=== PATIENT | female | born 1950 | race Caucasian/White ===

== ENCOUNTER 2018-03-17 07:42 | Outpatient (CLI) | payer MEDICARE ==
--- NOTE | 2018-03-17 10:45 | CT ---
CHEST CT WITHOUT CONTRAST: HISTORY: Valve disorder. The patient is scheduled for surgery. COMPARISON: None. FINDINGS: Limited evaluation of the mediastinal structures due to lack of IV contrast. There is an upper asia l fat-containing right paratracheal lymph node, measuring 1 x 1.5 cm. Heart size is within normal li mits. There is no pericardial fusion. There is a calcification of the aortic valve. The ascending thoracic aorta, aortic arch, and descending thoracic aorta have an overall normal caliber. There is atherosclerosis. No evidence of significant coronary artery calcification. The visualized upper solid organs are grossly unremarkable. There is a moderate hiatal hernia. Trachea and central bronchi are patent. There is scar/atelectasis in the right upper lobe. The left lung demonstrates no significant masses or consolidation. There are additional areas of scarring in the lingula and middle lobe. No significant masses or consolidation in the lower lobes. Areas of s car and atelectasis are noted. No pleural effusion or pneumothorax. No lytic or blastic lesions in the osseous structures. IMPRESSION: 1. Moderate hiatal hernia. 2. Calcification of the aortic valve. No evidence of aneurysmal dilatation of the aorta. Patchy ar eas of atherosclerotic disease are noted. POS: [facility]
== END 2018-03-17 07:43 | disposition home or self-care (01) ==
LOC: BICCT 07:42
PROVIDERS: ATTEND Thoracic Surgery (Cardiothoracic Vascular Surgery)
DX: I35.9 Nonrheumatic aortic valve disorder, unspecified (principal); K44.9 Diaphragmatic hernia without obstruction or gangrene; I70.0 Atherosclerosis of aorta
CPT/HCPCS: 71250

== ENCOUNTER 2018-03-24 06:04 | Inpatient (IN) | payer MEDICARE ==
[2018-03-24] MEDS ORDERED: CEFAZOLIN/Water 2 GM/20 ML SYRINGE ONE (06:25)
[2018-03-24 06:55] LABS: #Eosinphils 0.2 thou/uL (0.0-0.7); #Lymphocytes 2.1 thou/uL (1.20-3.40); #Monocytes 0.4 thou/uL (0.11-0.59); #Neutrophils 2.8 thou/uL (1.40-6.50); %Basophils 0.8 % (0.0-1.0); %Eosinophils 3.6 % (0.0-10.0); %Lymphocytes 38.4 % (21.0-51.0); %Monocytes 6.9 % (0.0-10.0); %Neutrophils 50.3 % (42.0-75.0); Hemoglobin 12.9 g/dL (12.0-16.0); Mean Corpuscular Hemoglobin 28.7 pg (27.0-31.0); Mean Corpuscular Volume 86.9 fL (78.0-98.0); Mean Platelet Volume 7.3 fL (7.4-10.4); Platelet Count 208 thou/uL (130-400); RBC Distribution Width 12.7 % (11.5-14.5); Red Blood Cell (RBC) Count 4.51 mill/uL (4.20-5.40); White Blood Cell (WBC) Count 5.6 thou/uL (4.8-10.8)
[2018-03-24] MEDS ORDERED: Albumin 5% 500 ML ONE (06:57)
[2018-03-24] MEDS ORDERED: Midazolam HCl 5 mg/5 ml Vial ONE (07:00)
[2018-03-24] MEDS ORDERED: Fentanyl 250 MCG/5 ML VIAL ONE (07:00)
[2018-03-24] MEDS ORDERED: Heparin 10,000 UNITS/1 ML VIAL 30,000 UNITS in Sodium Chloride 0.9% 1,000 ML FS SCH (07:00)
[2018-03-24 07:11] LABS: INR-International Normal Ratio 1.1; PTT 28.4 SEC (22.9-36.1); Prothrombin Time 14.1 SEC (12.0-14.7)
[2018-03-24 07:12] LABS: Anion Gap 11 mmol/L (10-20); BUN (Urea Nitrogen) 15 mg/dL (9.8-20.1); Calc. Creatinine Clearance 73 mL/min (70-130); Calcium 9.7 mg/dL (7.8-10.44); Carbon Dioxide 27 mmol/L (23-31); Chloride 106 mmol/L (98-107); Estimated GFR-MDRD 64; Glucose 117 mg/dL (80-115); Potassium 3.9 mmol/L (3.5-5.1); Sodium 140 mmol/L (136-145)
[2018-03-24] MEDS ORDERED: Midazolam HCl 2 mg/2 ml Vial ONE (07:18)
[2018-03-24] MEDS ORDERED: Insulin Regular 300 UNITS/3 ML VIAL ONE (09:15)
[2018-03-24] MEDS ORDERED: Prevnar 13-Val Conj/PF 0.5 ML SYRINGE IM ONE (10:15)
[2018-03-24] MEDS ORDERED: Hetastarch 6% 500 ML 500 ML IVPB PRN (11:05)
[2018-03-24] MEDS ORDERED: Phenylephrine 10 MG/NS 250 ML 250 ML IVPB PRN (11:05)
[2018-03-24] MEDS ORDERED: Acetaminophen 325 MG TAB PO PRN (11:05)
[2018-03-24] MEDS ORDERED: D5 1/2 NS w/20 mEq KCL 1,000 ML IV SCH (11:05)
[2018-03-24] MEDS ORDERED: Promethazine HCl 25 MG/ML VIAL IM PRN (11:05)
[2018-03-24] MEDS ORDERED: Mag-Al 1200 mg/1200 mg/30 ML UDCUP PO PRN (11:05)
[2018-03-24] MEDS ORDERED: Fentanyl 100 MCG/2 ML VIAL SLOW IVP PRN ×2 (11:05)
[2018-03-24] MEDS ORDERED: HYDROcodone/Acetaminophen 5/325 mg Tablet PO PRN (11:05)
[2018-03-24] MEDS ORDERED: Bisacodyl 10 MG SUPP PR PRN (11:05)
[2018-03-24] MEDS ORDERED: hydrALAZINE 20 MG/ML VIAL SLOW IVP PRN (11:05)
[2018-03-24] MEDS ORDERED: Bisacodyl 5 MG TAB PO PRN (11:05)
[2018-03-24] MEDS ORDERED: Norepinephrine 8 MG/0.9% NS 250 ML IVPB PRN (11:05)
[2018-03-24] MEDS ORDERED: Nitroglycerin 50 MG/250 ML BOT 250 ML IVPB PRN (11:05)
[2018-03-24] MEDS ORDERED: Potassium Chloride 20 MEQ/100 ML PREMIX BAG IVPB PRN (11:05)
[2018-03-24] MEDS ORDERED: Guaifenesin DM 100-10/5 ML UDCUP PO PRN (11:05)
[2018-03-24] MEDS ORDERED: Potassium Chloride 60 MEQ/30 ML VIAL ONE (11:09)
[2018-03-24] MEDS ORDERED: PHENYLEPHRINE-NS 100 MCG/ML 10 ML SYRINGE ONE (11:09)
[2018-03-24] MEDS ORDERED: Magnesium 5 GM/10 ML VIAL ONE (11:09)
[2018-03-24] MEDS ORDERED: Thrombin 5000 UNITS/5 ML VIAL ONE (11:09)
[2018-03-24] MEDS ORDERED: Heparin 30,000 units/30 ml VIAL ONE (11:09)
[2018-03-24] MEDS ORDERED: Calcium Chloride 1 GM/10 ML Abboject SYRINGE ONE (11:09)
[2018-03-24] MEDS ORDERED: Lidocaine 2% PF 100 mg/5 ml Syringe ONE (11:09)
[2018-03-24] MEDS ORDERED: Aminocaproic Acid 5 GM/20 ML VIAL ONE (11:09)
[2018-03-24] MEDS ORDERED: Mannitol 12.5 GM/50 ML ONE (11:09)
[2018-03-24] MEDS ORDERED: Sodium Bicarb 50 MEQ/50 ML VIAL ONE (11:09)
[2018-03-24] MEDS ORDERED: Protamine Sulfate 250 MG/25 ML VIAL ONE (11:09)
[2018-03-24] MEDS ORDERED: Vecuronium 10 MG VIAL ONE (11:09)
[2018-03-24] MEDS ORDERED: PROPOFOL 200 MG/20 ML VIAL ONE (11:09)
--- NOTE | 2018-03-24 11:12 | OP ---
DATE OF OPERATION: 03/24/2018 PREOPERATIVE DIAGNOSIS: Aortic stenosis. POSTOPERATIVE DIAGNOSIS: Aortic stenosis. PROCEDURE: Aortic valve replacement with #21 Inspiris bioprosthetic valve. SURGEON: Dr. Silvestre Matute and Dr. Nick Mims. ANESTHESIA: General endotracheal, Dr. Doc Bateman. PUMP TIME: 78 minutes. CROSS-CLAMP TIME: 58 minutes. LOW CORE TEMP: 32-degree Celsius. CAP CUTTER: Jackie Contreras. DRAINS: 24-Irish chest tubes x2. DRIPS: None. TRANSFUSIONS: None. PROCEDURE IN DETAIL: After operative consent was obtained, the patient was brought to the operating room and placed in the supine position on the operating room table. Appropriate anesthetic monitor w as placed and general endotracheal anesthesia was induced. Chest, abdomen, and legs were prepped and draped in usual sterile fashion. Median sternotomy was performed. The patient was systemically hep arinized. Pericardium was incised with electrocautery. Pericardial stay sutures were placed. Aorti c and atrial cannulation was performed. The aorta was very thin and fragile. After adequate heparin ization, retrograde prime was performed. The patient was placed on cardiopulmonary bypass. Aortic c ross-clamp was applied and antegrade sanguinous cardioplegic arrest obtained. One liter of antegrade cold cardioplegia was given. Topical cold solution was used. Left ventricular sump drain was place d to the right superior pulmonary vein. CO2 was infused in the pericardial well throughout the open portion of the procedure. Transverse aortotomy was performed. This was hockey stick down towards th e noncoronary jake. Valve was inspected. It was a three-leaflet valve that the left and right comm issures were fused making in a functional bileaflet valve. Leaflets were very calcified and immobile . Leaflets were debrided and the annulus decalcified. Pledgeted 2-0 Ethibond sutures were placed in the annulus. Valve measured as a 21. A 21 Inspiris bioprosthetic valve was brought into the operat irving field. Sutures were placed through the sewing ring. The valve was seated and secured with core knots. The valve seated nicely. The aortotomy was closed with a pledgeted dual layer 4-0 Prolene dior ture. BioGlue was placed on the suture line. Heart was then allowed to fill and de-airing maneuvers were performed. The patient was placed in Trendelenburg position and the crossclamp removed. The l eft ventricular sump drain was removed and its pursestring sutures secured. The cardioplegic needle was removed and its access site secured with a pledgeted 4-0 Prolene suture. Triply pledgeted 4-0 Pr olene pursestring was placed around the aortic cannulation site. The patient was warmed and weaned f rom cardiopulmonary bypass. Ventricular pacing wires were placed. After resumption of sinus rhythm, good hemodynamics, and temperature greater than 36.5, bypass was discontinued. Transfusions were gi neeta. Protamine was administered. Aortic decannulation was performed and pursestring sutures secured . The pledgeted pursestring was secured with good hemostasis. This was reinforced with BioGlue. Af ter protamine was administered, hemostasis was ensured. Vancomycin paste was placed on the sternal e dges. Twenty-four Irish chest tubes were placed in mediastinum. Sternum was closed with #5 wire. Sternum was treated with platelet-rich plasma and wires twisted. Wounds were irrigated, treated with platelet-poor plasma, and closed in multiple layers. Needle, sponge, and instrument counts were rep orted as correct at the end of the procedure. Patient tolerated procedure well and was transferred t o the intensive care unit in stable, but critical condition.
[2018-03-24] MEDS ORDERED: Dextrose 50% Abboject 50 ML SYRINGE SLOW IVP PRN (11:15)
[2018-03-24] MEDS ORDERED: Magnesium 2 GM/NS 0.9% 100 ML 2 GM in Premix Bag 1 BAG IVPB SCH (11:15)
[2018-03-24] MEDS ORDERED: Dextrose 5% in Water 1,000 ML IV PRN (11:15)
[2018-03-24 11:17] LABS: Actual Bicarbonate (HCO3a) 19.5 mEq/L (22-28); Base Excess (BEa) -6.2 mEq/L (-2.0 to +3.0); CO2 Tension 38.9 mmHg (35.0-45.0); Carboxyhemoglobin (COHb) 0.3 gm% (0.0-3.0); Hemoglobin (Hb) 10.6 g/dL (12.0-16.0); O2 Tension (PaO2) 95.1 mmHg (> 80.0); pH, Arterial 7.32 (7.35-7.45)
[2018-03-24 11:18] LABS: ALV-art Gradient 284.075 (0-20); Puncture Site LINE
[2018-03-24] MEDS: Ketorolac Tromethamine 30 MG/ML VIAL IVP SCH ×2 (11:29→17:08)
[2018-03-24 11:37] LABS: #Basophils 0.3 thou/uL (0.0-0.2); #Eosinphils 0.2 thou/uL (0.0-0.7); #Lymphocytes 2.9 thou/uL (1.20-3.40); #Neutrophils 9.8 thou/uL (1.40-6.50); %Basophils 1.8 % (0.0-1.0); %Eosinophils 1.3 % (0.0-10.0); %Lymphocytes 20.8 % (21.0-51.0); %Monocytes 6.9 % (0.0-10.0); %Neutrophils 69.3 % (42.0-75.0); Hemoglobin 10.4 g/dL (12.0-16.0); INR-International Normal Ratio 1.7; Mean Corpuscular HGB CONC 31.7 g/dL (32.0-36.0); Mean Corpuscular Volume 88.4 fL (78.0-98.0); Mean Platelet Volume 7.9 fL (7.4-10.4); PTT 36.4 SEC (22.9-36.1); Platelet Count 152 thou/uL (130-400); Prothrombin Time 20.1 SEC (12.0-14.7); RBC Distribution Width 12.6 % (11.5-14.5); Red Blood Cell (RBC) Count 3.72 mill/uL (4.20-5.40); White Blood Cell (WBC) Count 14.2 thou/uL (4.8-10.8)
[2018-03-24 11:50] LABS: Anion Gap 10 mmol/L (10-20); BUN (Urea Nitrogen) 12 mg/dL (9.8-20.1); Calc. Creatinine Clearance 84 mL/min (70-130); Calcium 8.3 mg/dL (7.8-10.44); Carbon Dioxide 21 mmol/L (23-31); Chloride 112 mmol/L (98-107); Estimated GFR-MDRD 71; Glucose 105 mg/dL (80-115); Potassium 4.1 mmol/L (3.5-5.1); Sodium 139 mmol/L (136-145)
[2018-03-24] MEDS ORDERED: Magnesium 2 GM/50 ML 2 GM in Premix Bag 1 BAG IVPB SCH (12:45)
--- NOTE | 2018-03-24 13:29 | RAD ---
PORTABLE SUPINE FRONTAL CHEST RADIOGRAPH: 03/24/2018 HISTORY: Status post open heart surgery. COMPARISON: None. FINDINGS: Endotracheal tube in place, terminating at the level of the clavicular heads. Midline sternotomy wir es are present. A right-sided vascular catheter is present, with the distal tip overlying the region of the right atrium. Post surgical drainage catheters overly the lower mediastinum. Mechanical lindsay ve noted overlying the cardiac silhouette and the left cardiophrenic angle region. There is a focal opacity in the medial left base, suggesting partial consolidation/collapse of the left lower lobe. IMPRESSION: 1. Lines and tubes as detailed above. 2. Focal opacity in the medial left lung base. POS: [facility]
[2018-03-24] MEDS: HEXTEND 6% LR 500ML 500 ML IVPB PRN ×2 (13:44→20:30)
[2018-03-24] MEDS: CEFAZOLIN/Water 2 GM/20 ML SYRINGE SLOW IVP SCH ×2 (15:12→21:02)
[2018-03-24 15:48] LABS: Actual Bicarbonate (HCO3a) 18.9 mEq/L (22-28); Base Excess (BEa) -4.3 mEq/L (-2.0 to +3.0); CO2 Tension 28.2 mmHg (35.0-45.0); Carboxyhemoglobin (COHb) 0.4 gm% (0.0-3.0); Hemoglobin (Hb) 9.9 g/dL (12.0-16.0); pH, Arterial 7.44 (7.35-7.45)
[2018-03-24 15:49] LABS: Puncture Site LINE
[2018-03-24] MEDS: Insulin Regular 300 UNITS/3 ML VIAL SC PRN ×2 (16:06→20:53)
[2018-03-24] MEDS: Vancomycin HCl 1 GM in Premix Bag 1 BAG IVPB SCH (17:09)
[2018-03-24 17:29] LABS: Hemoglobin 9.8 g/dL (12.0-16.0)
[2018-03-24 17:51] LABS: Potassium 4.6 mmol/L (3.5-5.1)
[2018-03-24] MEDS: Atorvastatin Calcium 40 MG TAB PO SCH (20:26)
[2018-03-24] MEDS: Ondansetron PF 4 MG/2 ML Vial IVP PRN (20:26)
[2018-03-24] MEDS: Famotidine/PF 20 mg/2ml Vial SLOW IVP SCH (20:26)
[2018-03-25] MEDS: Ketorolac Tromethamine 30 MG/ML VIAL IVP SCH ×4 (00:41→18:25)
[2018-03-25] MEDS: CEFAZOLIN/Water 2 GM/20 ML SYRINGE SLOW IVP SCH (05:15)
[2018-03-25] MEDS: Vancomycin HCl 1 GM in Premix Bag 1 BAG IVPB SCH (05:15)
[2018-03-25] MEDS: Insulin Regular 300 UNITS/3 ML VIAL SC PRN (05:21)
[2018-03-25 05:31] LABS: #Lymphocytes 1.3 thou/uL (1.20-3.40); #Monocytes 0.8 thou/uL (0.11-0.59); #Neutrophils 4.7 thou/uL (1.40-6.50); %Basophils 0.1 % (0.0-1.0); %Eosinophils 0.3 % (0.0-10.0); %Lymphocytes 19.4 % (21.0-51.0); %Monocytes 11.8 % (0.0-10.0); %Neutrophils 68.5 % (42.0-75.0); Hemoglobin 7.8 g/dL (12.0-16.0); Mean Corpuscular HGB CONC 32.1 g/dL (32.0-36.0); Mean Corpuscular Hemoglobin 28.8 pg (27.0-31.0); Mean Corpuscular Volume 89.6 fL (78.0-98.0); Mean Platelet Volume 7.3 fL (7.4-10.4); Platelet Count 123 thou/uL (130-400); RBC Distribution Width 12.7 % (11.5-14.5); Red Blood Cell (RBC) Count 2.72 mill/uL (4.20-5.40); White Blood Cell (WBC) Count 6.8 thou/uL (4.8-10.8)
[2018-03-25] MEDS ORDERED: Furosemide 20 MG/2 ML VIAL SLOW IVP SCH (05:45)
[2018-03-25 05:54] LABS: Anion Gap 10 mmol/L (10-20); BUN (Urea Nitrogen) 15 mg/dL (9.8-20.1); Calc. Creatinine Clearance 76 mL/min (70-130); Calcium 7.9 mg/dL (7.8-10.44); Carbon Dioxide 22 mmol/L (23-31); Chloride 112 mmol/L (98-107); Estimated GFR-MDRD 63; Glucose 137 mg/dL (80-115); Potassium 4.5 mmol/L (3.5-5.1); Sodium 139 mmol/L (136-145)
[2018-03-25] MEDS: Ondansetron PF 4 MG/2 ML Vial IVP PRN ×2 (06:05→11:04)
--- NOTE | 2018-03-25 08:07 | RAD ---
PORTABLE CHEST: History: Post op sternotomy follow up. Comparison: 03-24-18 FINDINGS: ET tube has been removed. Central line is unchanged with tip overlying the lower SVC. Lung [place]ton remain aerated. There continues to be streaky infiltrate and/or atelectasis into the left lung base, probably improved when compared to 03-24-18. Old right rib fractures are again noted. IMPRESSION: Persistent CT atelectasis and/or infiltrate in the left lung base. POS: [facility]
[2018-03-25] MEDS: Famotidine/PF 20 mg/2ml Vial SLOW IVP SCH ×2 (08:43→21:14)
[2018-03-25] MEDS: Famotidine 20 MG TAB PO SCH ×2 (09:04→20:38)
[2018-03-25] MEDS: Aspirin 325 MG TAB PO SCH (09:04)
[2018-03-25] MEDS: Magnesium 2 GM/50 ML 2 GM in Premix Bag 1 BAG IVPB SCH (09:04)
[2018-03-25] MEDS: HYDROcodone/Acetaminophen 5/325 mg Tablet PO PRN ×2 (09:09→21:08)
[2018-03-25] MEDS: Atorvastatin Calcium 40 MG TAB PO SCH (20:38)
[2018-03-26] MEDS: Ketorolac Tromethamine 30 MG/ML VIAL IVP SCH ×4 (00:14→18:15)
[2018-03-26 05:18] LABS: #Eosinphils 0.2 thou/uL (0.0-0.7); #Lymphocytes 2.2 thou/uL (1.20-3.40); #Monocytes 0.9 thou/uL (0.11-0.59); #Neutrophils 6.4 thou/uL (1.40-6.50); %Basophils 0.2 % (0.0-1.0); %Eosinophils 1.6 % (0.0-10.0); %Lymphocytes 22.9 % (21.0-51.0); %Monocytes 9.7 % (0.0-10.0); %Neutrophils 65.6 % (42.0-75.0); Hemoglobin 10.2 g/dL (12.0-16.0); Mean Corpuscular HGB CONC 32.4 g/dL (32.0-36.0); Mean Corpuscular Hemoglobin 29.5 pg (27.0-31.0); Mean Platelet Volume 8.3 fL (7.4-10.4); Platelet Count 134 thou/uL (130-400); RBC Distribution Width 12.9 % (11.5-14.5); Red Blood Cell (RBC) Count 3.47 mill/uL (4.20-5.40); White Blood Cell (WBC) Count 9.7 thou/uL (4.8-10.8)
[2018-03-26 05:25] LABS: Anion Gap 9 mmol/L (10-20); BUN (Urea Nitrogen) 21 mg/dL (9.8-20.1); Calc. Creatinine Clearance 70 mL/min (70-130); Calcium 8.6 mg/dL (7.8-10.44); Carbon Dioxide 24 mmol/L (23-31); Chloride 109 mmol/L (98-107); Estimated GFR-MDRD 57; Glucose 119 mg/dL (80-115); Potassium 4.5 mmol/L (3.5-5.1); Sodium 137 mmol/L (136-145)
[2018-03-26] MEDS: Magnesium 2 GM/50 ML 2 GM in Premix Bag 1 BAG IVPB SCH (08:55)
[2018-03-26] MEDS: Famotidine 20 MG TAB PO SCH ×2 (08:55→21:24)
[2018-03-26] MEDS: Aspirin 325 MG TAB PO SCH (08:55)
[2018-03-26] MEDS: Famotidine/PF 20 mg/2ml Vial SLOW IVP SCH (08:57)
--- NOTE | 2018-03-26 09:49 | RAD ---
PORTABLE CHEST: Date: 03/26/18 HISTORY: Postop sternotomy follow-up. COMPARISON: 03/25/18. FINDINGS: Mild cardiomegaly. Postop sternotomy change. Lung washington appear clear. Vascular markings normal. Cent ral line overlies the right atrium. IMPRESSION: No acute lung process apparent. POS: [facility]
[2018-03-26] MEDS: HYDROcodone/Acetaminophen 5/325 mg Tablet PO PRN ×2 (10:14→14:52)
[2018-03-26] MEDS ORDERED: Mineral Oil ENEMA PR PRN (12:31)
[2018-03-26] MEDS ORDERED: Milk Of Magnesia 30 ML UDCUP PO PRN (12:31)
[2018-03-26] MEDS ORDERED: Artificial Tears 18 DROP/0.9 ML EA EYE PRN (12:31)
[2018-03-26] MEDS ORDERED: Bisacodyl 5 MG TAB PO PRN (12:31)
[2018-03-26] MEDS ORDERED: Nitroglycerin 0.4 MG TAB (25 Tab Bottle) SL PRN (12:31)
[2018-03-26] MEDS ORDERED: Bisacodyl 10 MG SUPP PR PRN (12:31)
[2018-03-26] MEDS ORDERED: Mag-Al 1200 mg/1200 mg/30 ML UDCUP PO PRN (12:31)
[2018-03-26] MEDS ORDERED: Guaifenesin DM 100-10/5 ML UDCUP PO PRN (12:31)
[2018-03-26] MEDS ORDERED: Zolpidem Tartrate 5 MG TAB PO PRN (12:31)
[2018-03-26] MEDS ORDERED: diphenhydrAMINE 25 MG CAP PO PRN (12:31)
[2018-03-26] MEDS: Atorvastatin Calcium 40 MG TAB PO SCH (21:24)
[2018-03-26] MEDS: Fenofibrate Nanocrystallized 145 MG TAB PO SCH (21:24)
[2018-03-27] MEDS: Ketorolac Tromethamine 30 MG/ML VIAL IVP SCH ×3 (00:08→11:39)
[2018-03-27] MEDS: HYDROcodone/Acetaminophen 5/325 mg Tablet PO PRN ×3 (00:09→11:39)
[2018-03-27] MEDS: Famotidine 20 MG TAB PO SCH ×2 (08:32→20:38)
[2018-03-27] MEDS: Aspirin 325 mg Enteric Coated Tablet PO SCH (08:33)
[2018-03-27] MEDS ORDERED: Furosemide 40 MG/4 ML VIAL SLOW IVP SCH (09:45)
[2018-03-27] MEDS: Furosemide 40 MG TAB PO SCH (15:12)
[2018-03-27] MEDS ORDERED: Amiodarone HCl 150 MG, Admixture Fee 1 EACH in Dextrose 5% in Water 100 ML IVPB SCH (18:30)
[2018-03-27] MEDS: Amiodarone HCl 450 MG in Dextrose 5% in Water 250 ML IVPB SCH (18:53)
[2018-03-27 19:07] LABS: ALT (SGPT) 20 U/L (8-55); AST (SGOT) 23 U/L (5-34); Alkaline Phosphatase 62 U/L (40-150); Bilirubin, Direct 0.3 mg/dL (0.1-0.3); Bilirubin, Total 0.6 mg/dL (0.2-1.2); Potassium 4.1 mmol/L (3.5-5.1); Protein, Total 6.2 g/dL (6.0-8.3)
[2018-03-27] MEDS: Atorvastatin Calcium 40 MG TAB PO SCH (20:38)
[2018-03-27] MEDS: Fenofibrate Nanocrystallized 145 MG TAB PO SCH (20:38)
[2018-03-28] MEDS: Amiodarone HCl 450 MG in Dextrose 5% in Water 250 ML IVPB SCH (04:25)
[2018-03-28] MEDS: Famotidine 20 MG TAB PO SCH ×2 (09:47→21:14)
[2018-03-28] MEDS: Furosemide 40 MG TAB PO SCH ×2 (09:47→13:28)
[2018-03-28] MEDS: Aspirin 325 mg Enteric Coated Tablet PO SCH (09:48)
[2018-03-28] MEDS: Carvedilol 3.125 MG TAB PO SCH ×2 (09:48→17:42)
[2018-03-28 13:15] VITALS: BMI 31.1
[2018-03-28] MEDS: Atorvastatin Calcium 40 MG TAB PO SCH (21:15)
[2018-03-28] MEDS: Amiodarone 200 MG TAB PO SCH (21:15)
[2018-03-28] MEDS: Fenofibrate Nanocrystallized 145 MG TAB PO SCH (21:15)
[2018-03-29 08:01] VITALS: TEMP 98.3
[2018-03-29] MEDS: Furosemide 40 MG TAB PO SCH (09:13)
[2018-03-29] MEDS: Famotidine 20 MG TAB PO SCH (09:14)
[2018-03-29] MEDS: Carvedilol 3.125 MG TAB PO SCH (09:14)
[2018-03-29] MEDS: Amiodarone 200 MG TAB PO SCH (09:14)
[2018-03-29] MEDS: Aspirin 325 mg Enteric Coated Tablet PO SCH (09:14)
[2018-03-29 09:57] VITALS: BP 147/67
--- NOTE | 2018-03-29 13:34 | DIS ---
DATE OF ADMISSION: 03/24/2018 DATE OF DISCHARGE: 03/29/2018 DIAGNOSIS: Severe aortic stenosis. PROCEDURES: Aortic valve replacement with a #21 Inspiris bioprosthetic valve. DESCRIPTION OF HOSPITAL STAY: Ms. Cavanaugh is a 67-year-old woman admitted for elective aortic valve replacement. She has done well postoperatively. She had a short bout of atrial fibrillation, contro lled with amiodarone. She is being discharged to home in good condition to follow up with me in [address] Castro in a month. DISCHARGE MEDICATIONS: Include, 1. Aspirin 325 mg daily. 2. Amiodarone 200 mg b.i.d. 3. Lipitor 40 mg at bedtime. 4. Nexium 40 mg daily. 5. Fenofibrate 160 mg at bedtime. 6. Coreg 3.125 mg b.i.d. 7. [place] 5/325 one to two q.6 hours p.r.n. pain.
--- NOTE | 2018-04-08 11:36 | PQF ---
DEBI SIMONS CHARLES H MD [id number] CLINICAL DOCUMENTATION CLARIFICATION FORM: POST DISCHARGE DATE: 04/08/18 ATTN: Dr. Matute Please exercise your independent, professional judgment in responding to the clarification form. Clinical indicators are provided on the bottom of this form for your review Please check appropriate box(s): [ ] Acute blood loss anemia [ x ] Post-op anemia related to acute blood loss [ ] Anemia: [ ] Aplastic [ ] Nutritional [ ] Drug induced (specify) ___ [ ] Hemolytic [ ] Hereditary [ ] Acquired [ ] Autoimmune [ ] Non-autoimmune [ ] Enzyme disorder [ ] Chronic Anemia: [ ] Blood loss [ ] Hemolytic [ ] Simple [ ] Due to Vitamin B12 Deficiency [ ] Other [ ] Anemia of Chronic Disease (please specify) [ ] Anemia due to Neoplasm: [ ] Primary [ ] Secondary [ ] Anemia due to (please choose): [ ] Due to Chemotherapy [ ] Due to Radiotherapy [ ] Due to Immunotherapy [ ] Other diagnosis ____dilutional [ ] Unable to determine In addition, please specify: Present on Admission (POA): [ ] Yes [ x ] No you answered your own question - HGB was 12 at admission... [ ] Unable to determine For continuity of documentation, please document condition throughout progress notes and discharge summary. Thank You. CLINICAL INDICATORS - SIGNS / SYMPTOMS / LABS Pre op labs HGB 12.0 HCT 39.2 post operative labs HGB 03/24 10.5 HGB 03/25 7.8 HCT 03/24 30.0 HCT 03/25 24.4 RISK FACTORS Aortic Valve Replacement post op afib controlled with amiodarone TREATMENTS: transfused with 1U PRBC on 03/25 (This form is maintained as a part of the permanent medical record) 2014 [employer]. All Rights Reserved [email or web address] [phone] [email or web address]
== END 2018-03-29 13:43 | disposition home or self-care (01) | DRG 220 ==
LOC: SURG A 06:04 → CCU 09:53 → 2NO 03-26 23:57
PROVIDERS: ADMIT Thoracic Surgery (Cardiothoracic Vascular Surgery); ATTEND Thoracic Surgery (Cardiothoracic Vascular Surgery)
PROC: 02RF08Z Replacement of Aortic Valve with Zooplastic Tissue, Open Approach (ICD-10-PCS; principal; 2018-03-24)
PROC: 5A1221Z Performance of Cardiac Output, Continuous (ICD-10-PCS; 2018-03-24)
PROC: 30233N1 Transfusion of Nonautologous Red Blood Cells into Peripheral Vein, Percutaneous Approach (ICD-10-PCS; 2018-03-25)
DX: I35.0 Nonrheumatic aortic (valve) stenosis (principal); D62 Acute posthemorrhagic anemia; I48.91 Unspecified atrial fibrillation; Z79.82 Long term (current) use of aspirin; K21.9 Gastro-esophageal reflux disease without esophagitis; E78.2 Mixed hyperlipidemia
CPT/HCPCS: 36415; 36416; 36430; 71045; 80048; 80076; 82805; 83735; 84132; 84443; 85025; 85610; 85730; 86850; 86900; 86901; 93005; 93010; 93798; 94002; J0282; J1642; J1644; J1815; J1885; J1940; J2001; J2150; J2250; J2370; J2405; J2550; J2704; J2720; J3010; J3370; J3475; J3480; J7050; J7070; P9016; P9045; S0017; S0028

== ENCOUNTER 2018-05-27 11:12 | Inpatient (IN) | payer MEDICARE ==
[2018-05-27 11:52] LABS: #Basophils 0.1 thou/uL (0.0-0.2); #Eosinphils 0.3 thou/uL (0.0-0.7); #Lymphocytes 1.6 thou/uL (1.20-3.40); #Monocytes 0.6 thou/uL (0.11-0.59); #Neutrophils 5.5 thou/uL (1.40-6.50); %Basophils 0.9 % (0.0-1.0); %Eosinophils 3.5 % (0.0-10.0); %Lymphocytes 20.3 % (21.0-51.0); %Monocytes 7.4 % (0.0-10.0); %Neutrophils 67.9 % (42.0-75.0); Mean Corpuscular HGB CONC 30.9 g/dL (32.0-36.0); Mean Corpuscular Hemoglobin 25.3 pg (27.0-31.0); Mean Corpuscular Volume 81.9 fL (78.0-98.0); Platelet Count 442 thou/uL (130-400); RBC Distribution Width 13.6 % (11.5-14.5); Red Blood Cell (RBC) Count 5.13 mill/uL (4.20-5.40); White Blood Cell (WBC) Count 8.1 thou/uL (4.8-10.8)
[2018-05-27 12:14] LABS: ALT (SGPT) 12 U/L (8-55); AST (SGOT) 20 U/L (5-34); Albumin 4.1 g/dL (3.4-4.8); Alkaline Phosphatase 103 U/L (40-150); Anion Gap 16 mmol/L (10-20); BUN (Urea Nitrogen) 14 mg/dL (9.8-20.1); Bilirubin, Total 0.3 mg/dL (0.2-1.2); Calc. Creatinine Clearance 0 mL/min (70-130); Calcium 9.7 mg/dL (7.8-10.44); Carbon Dioxide 23 mmol/L (23-31); Chloride 103 mmol/L (98-107); Estimated GFR-MDRD 70; Globulin 3.4 g/dL (2.4-3.5); Glucose 109 mg/dL (80-115); Potassium 4.2 mmol/L (3.5-5.1); Protein, Total 7.5 g/dL (6.0-8.3); Sodium 138 mmol/L (136-145)
[2018-05-27] MEDS ORDERED: Adenosine 6 MG/2 ML VIAL ONE (12:19)
--- NOTE | 2018-05-27 12:20 | RAD ---
SINGLE VIEW OF THE CHEST: Comparison: 05-06-18 History: Tachycardia. FINDINGS: Single view of the chest shows an enlarged cardiomediastinal silhouette. The patient is status post s ternotomy. There is a moderate left pleural effusion with adjacent infiltrate versus infiltrate. IMPRESSION: 1. Cardiomegaly. 2. Left pleural effusion with adjacent atelectasis versus infiltrate. POS: [facility]
[2018-05-27] MEDS ORDERED: Diltiazem 125 MG/25 ML ONE (12:35)
[2018-05-27] MEDS ORDERED: diphenhydrAMINE 50 MG/ML VIAL ONE (12:45)
[2018-05-27 15:18] LABS: Troponin I Less than 0.010 ng/mL (< 0.028)
[2018-05-27] MEDS ORDERED: Ondansetron PF 4 MG/2 ML Vial IVP PRN (17:19)
[2018-05-27] MEDS ORDERED: Ondansetron ODT 4 MG TAB PO PRN (17:19)
[2018-05-27] MEDS ORDERED: Diltiazem 125 MG in Sodium Chloride 0.9% 100 ML IVPB SCH (17:30)
[2018-05-27 18:17] LABS: Troponin I Less than 0.010 ng/mL (< 0.028)
[2018-05-27] MEDS ORDERED: cloNIDine 0.1 MG TAB PO PRN (20:22)
[2018-05-27] MEDS: Aspirin 325 MG TAB PO SCH (21:45)
[2018-05-27] MEDS: Carvedilol 6.25 MG TAB PO SCH (21:46)
[2018-05-27] MEDS: Atorvastatin Calcium 40 MG TAB PO SCH (21:49)
--- NOTE | 2018-05-28 00:48 | HP ---
PRIMARY CARE PHYSICIAN: Anshul Ortega DO CHIEF COMPLAINT: Palpitations and tachycardia. HISTORY OF PRESENT ILLNESS: This is a 68-year-old female patient of Dr. Ortega, who was over a cardiac rehab today. She is two months status post atrial valve replacement and during her exercises, the therapist noted that she was tachy and in the 140s and she had been noticing over the last previous days some dyspnea and some chest heaviness, so she was sent to the emergency room. Her initial evaluations were tough to pinpoint whether her rhythm was simply an SVT versus an atrial fibrillation. We tried some adenosine and found that she went into an atrial fibrillation rather easily and stopped things initially then went back into the 140s. The patient states that her post visit here couple of weeks ago, her amiodarone was stopped and prior while she was in the workup in the hospital, she had been on carvedilol, but that was not continued and she got out of the hospital. She states that she has had some earlier some shortness of breath, a little chest heaviness, but it would come in episodes, nothing lasting longer than may be 15 minutes, but she was not quite sure, what was feeling. She never checked her pulse to see if it was a fast rate. She just did not feel it was right. PAST MEDICAL HISTORY: Her past medical history is positive for hyperlipidemia, gastroesophageal reflux disease, some hypertension, and aortic valve disease of stenosis. PAST SURGICAL HISTORY: Her past surgical history is a recent atrial valve replacement with prosthetic valve done in the end of February [address] Matute. She had a normal coronary arteries on the preoperative cath. Her LV function was preserved at that time. 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 She had a tonsillectomy and adenoidectomy. She had a cholecystectomy and she had a synovial cyst removed from her right wrist in the past. ALLERGIES: SHE HAS NO KNOWN DRUG ALLERGIES. FAMILY HISTORY: Her father at age 86 from heart disease. He also had a stroke and he had some undescribed, undefined type of cancer. Her mother at age 84. She had a history of hypertension. SOCIAL HISTORY: Socially, she is a non-smoker. No recreational drugs, no toxic habits. MEDICATIONS: She was discharged from the hospital on; 1. Aspirin 325 daily. 2. Amiodarone 200 twice a day and that was stopped a couple of weeks ago. 3. She was also on Lipitor 40 mg daily. 4. Nexium 40 mg. 5. Fenofibrate 160 mg daily. Says at the hospital discharge that she was supposed to be on coreg 3.125 twice a day. She states today that she has not been on that. REVIEW OF SYSTEMS: Other than what is there in the HPI. She denies any fever or denies any headache or troubles during swallowing. No visual changes. She has had a chronic nonproductive more than irritating throat clearing cough. She has had some shallowness to her breath, with some shortness of breath type symptom, but she would not necessarily call as that. She denies any nausea, vomiting, hemoptysis, or hematemesis. She denies any diarrhea, constipation. She denies any melena, bright red blood per rectum, or tenesmus. She denies any changes in bladder habits. No dysuria, hematuria, or inability to void. She denies any paresthesias or paresis. Denies any auditory or visual hallucination. No homicidal or suicidal ideations, no depressed symptoms. PHYSICAL EXAMINATION: VITAL SIGNS: She is afebrile. Blood pressure is 130s/70 to 80s, tachy. When she got her in the 140s, currently in the 80s to 90s, afebrile. HEENT: She wears glasses. Head without trauma. Pupils were equal, round, reactive to light and accommodation. Extraocular movements were intact. Mucous membranes were moist. NECK: No lymphadenopathy. Supple, full range of motion, nontender. Trachea soft, esophagus was midline. LUNGS: Clear to auscultation bilaterally. No rales, rhonchi, or wheezes. HEART: S1 and S2 currently with end systolic murmurs, no clicks, no heaves, no lifts, no gallops. ABDOMEN: Soft, non tender, nondistended. No palpable masses. No hepatosplenomegaly. Bowel sounds positive throughout. GENITOURINARY: Deferred. EXTREMITIES: Show good palpable pulses in all four extremities. No cyanosis, clubbing, or edema. NEUROLOGIC: She is grossly intact. Cranial nerves 2 through 12 are equal and symmetrical. There was no motor or sensory deficits appreciated. LABORATORY DATA: White count is 8.1, H and H of 13 and 42 respectively with platelets of 442,000. Her chemistry shows sodium 138, potassium 4.2, chloride 103, bicarbonate 23, BUN is 14, creatinine is 0.82, GFR of 70, glucose of 109. AST is 20, ALT is 12. She has had two troponins, both undetectable. ASSESSMENT: Atrial fibrillation with rapid ventricular rate or response, two months, status post atrial valve replacement with new onset of atrial fibrillation. PLAN: The plan is to admit, get cardiology consult, likely increase her carvedilol and we will likely need to start a blood thinner like Eliquis or Xarelto. Job ID: [id number]
[2018-05-28] MEDS: Loratadine 10 MG TAB PO SCH (09:28)
[2018-05-28] MEDS: Carvedilol 6.25 MG TAB PO SCH ×2 (09:28→21:16)
[2018-05-28] MEDS: Furosemide 20 MG TAB PO SCH (09:28)
[2018-05-28] MEDS: Fenofibrate Nanocrystallized 145 MG TAB PO SCH (09:28)
[2018-05-28 13:46] VITALS: BMI 24.5
[2018-05-28] MEDS: Digoxin 0.25 MG TAB PO SCH ×2 (18:24→23:52)
[2018-05-28] MEDS: Atorvastatin Calcium 40 MG TAB PO SCH (21:15)
[2018-05-28] MEDS: Aspirin 325 MG TAB PO SCH (21:16)
--- NOTE | 2018-05-29 01:22 | CON ---
DATE OF CONSULTATION: REASON FOR CONSULTATION: Tachycardia. HISTORY OF PRESENT ILLNESS: Ms. Cavanaugh is a 68-year-old tachycardia. The details of the events in the emergency room were vague. She apparently was seen for tachycardia. It was unknown whether it was atrial fibrillation or SVT. She was given adenosine. The strips during the adenosine infusion were not available. She appeared to have an organized regular rhythm with a short NM interval. Further strips suggested sinus rhythm. No evidence noted in the chart suggesting atrial fibrillation. Ms. Cavanaugh is currently asymptomatic. She recently underwent AVR 2 months ago. PAST MEDICAL HISTORY: Hyperlipidemia, acid reflux, hypertension, status post AVR. ALLERGIES: NONE. FAMILY HISTORY: Positive for CAD. SOCIAL HISTORY: No current tobacco or alcohol use. HOME MEDICATIONS: Include aspirin, Nexium, fenofibrate, and Lipitor. REVIEW OF SYSTEMS: A 10-point review of systems is reviewed and as above, otherwise negative. PHYSICAL EXAMINATION: GENERAL: Patient is a pleasant 68-year-old female who is in no acute distress. The patient appears their stated age. VITAL SIGNS: Blood pressure temperature 98. NEUROLOGIC: The patient is alert and oriented x3 with no focal neurologic deficits. HEENT: Sclerae without icterus. Mouth has moist mucous membranes with normal pallor. NECK: No JVD. Carotid upstroke brisk. No bruits bilaterally. LUNGS: Clear to auscultation with unlabored respirations. BACK: No scoliosis or kyphosis. CARDIAC: Regular rate and rhythm with normal S1 and S2. No S3 or S4 noted. No significant rubs, murmurs, thrills, or gallops noted throughout the precordium. PMI is not displaced. There is no parasternal heave. ABDOMEN: Soft, nontender, nondistended. No peritoneal signs present. No hepatosplenomegaly. No abnormal striae. EXTREMITIES: 2+ femoral and 2+ dorsalis pedis pulses. No cyanosis, clubbing, or edema. SKIN: No gross abnormalities. PERTINENT LABORATORY DATA: Hemoglobin 13. Creatinine 0.82, troponin negative. IMPRESSION: Supraventricular tachycardia. RECOMMENDATIONS: At this point, Ms. Cavanaugh appears to be in sinus rhythm. We will add beta-javy therapy in addition to digoxin with a loading dose. We will monitor overnight. If stable, we would recommend outpatient EP consultation. She is agreeable. Again, no evidence noted in the chart to suggest atrial fibrillation. At this point, anticoagulation therapy not indicated. We would also recommend any further episodes. Job ID: [id number]
[2018-05-29] MEDS: Digoxin 0.25 MG TAB PO SCH (06:00)
[2018-05-29] MEDS ORDERED: Apixaban 5 MG TAB PO SCH (09:00)
[2018-05-29] MEDS: Fenofibrate Nanocrystallized 145 MG TAB PO SCH (10:18)
[2018-05-29] MEDS: Furosemide 20 MG TAB PO SCH (10:20)
[2018-05-29] MEDS: Carvedilol 6.25 MG TAB PO SCH (10:21)
[2018-05-29] MEDS: Loratadine 10 MG TAB PO SCH (10:22)
--- NOTE | 2018-05-29 10:54 | PDOC.CTH ---
Cardiology Progress Note - Subjective No changes overnight. No complaints other than cough. Feeling much better. - Objective Vital Signs Temp Pulse Resp BP BP Pulse Ox 05/29/18 08:00 98.2 F 77 18 152/72 H 97 05/29/18 06:00 64 05/29/18 02:53 98 F 64 17 106/52 L 92 L 05/28/18 23:52 74 Admit Weight 147 lb Weight 147 lb 05/28/18 05/29/18 05/30/18 06:59 06:59 06:59 Intake Total 1000 200 Balance 1000 200 - Physical Examination General/Neuro: alert & oriented x3 Neck: no JVD present Lungs: CTA Heart: RRR Abdomen: NT/ND - Telemetry Telemetry Rhythm: SR - Labs Result Diagrams: 05/27/18 11:34 05/27/18 11:34 Troponin/CKMB Troponin I Less than 0.010 ng/mL (< 0.028) 05/27/18 17:41 - Assessment/Plan 1. PSVT s/p cardioversion with adenosine 2. HTN Stable. D/C on bblockers and Digoxin. F/U with EP as outpatient to discuss RFA. 30 day EVR ordered to be delivered to patient home.
[2018-05-29] MEDS ORDERED: Digoxin 0.25 MG TAB PO SCH (11:00)
[2018-05-29] MEDS ORDERED: Digoxin 0.125 MG TAB PO SCH (11:30)
[2018-05-29 11:38] VITALS: BP 169/81; TEMP 98.5
--- NOTE | 2018-05-29 13:31 | DIS ---
DATE OF ADMISSION: 05/27/2018 DATE OF DISCHARGE: 05/29/2018 ADMIT DIAGNOSIS: Tachycardia, presumed atrial fibrillation with rapid ventricular response. DISCHARGE DIAGNOSIS: Supraventricular tachycardia. PRIMARY CARE PHYSICIAN: Anshul Ortega, CONSULTATIONS: Cardiology, Dr. Kam. HOSPITAL COURSE: The patient is a 68-year-old female, well known to Dr. Ortega. She is 2 months status post aortic valve replacement for aortic stenosis and sclerosis. Previous workup prior to the surgery showed no cardiac abnormalities. She was sent to the emergency room after having palpitations during cardiac rehab and found to have a pulse in the 140s. In the emergency room, maneuvers were done and resumption of atrial fibrillation was made, the conclusion of those maneuvers. Dr. Kam and his evaluation excluded atrial fibrillation and no evidence of SVT. The patient has had no palpitations since coming up to the floor from the emergency room. She has been on carvedilol 6.[address] Kam added digoxin yesterday the day prior to discharge. So the plan is to discharge to home, she has a followup appointment with her scrap metal collector, Dr. Gallagher already scheduled on June 17. She will have new medicines of Coreg 6.25 to be taken twice a day and digoxin 0.125 to be taken daily. Her regular home medicines include aspirin 325 daily, Lipitor 40 mg daily, fenofibrate 145 mg, Lasix 20 mg daily, [id number] potassium pill, Nexium 40 mg daily. She will need to schedule on phone with Dr. Ortega in the next 7 to 10 days. Her medicines for the Coreg and the digoxin were sent to electronically through [employer] to her [facility]. Job ID: [id number]
[2018-05-30] MEDS ORDERED: Digoxin 0.125 MG TAB PO SCH ×2 (09:00)
== END 2018-05-29 13:29 | disposition home or self-care (01) | DRG 310 ==
LOC: ERS 11:12 → ERHOLD 13:38 → 2NO 17:04
PROVIDERS: ADMIT Family Medicine; ATTEND Family Medicine
DX: I47.1 Supraventricular tachycardia (principal); Z95.2 Presence of prosthetic heart valve; I10 Essential (primary) hypertension; E78.5 Hyperlipidemia, unspecified; K21.9 Gastro-esophageal reflux disease without esophagitis; Z82.49 Family history of ischemic heart disease and other diseases of the circulatory system; Z82.3 Family history of stroke
CPT/HCPCS: 36415; 71045; 80053; 84484; 85025; 93005; 93798; 94760; 96374; 96375; J0153; J1200

== ENCOUNTER 2018-07-25 05:53 | Observation (INO) | payer MEDICARE ==
[2018-07-25] MEDS ORDERED: Heparin 10,000 UNITS/1 ML VIAL ONE (06:33)
[2018-07-25] MEDS ORDERED: Lidocaine 1% (PF) 30 ML VIAL ONE (06:33)
[2018-07-25 07:01] LABS: #Basophils 0.1 thou/uL (0.0-0.2); #Eosinphils 0.2 thou/uL (0.0-0.7); #Monocytes 0.4 thou/uL (0.11-0.59); #Neutrophils 2.8 thou/uL (1.40-6.50); %Basophils 1.1 % (0.0-1.0); %Eosinophils 4.3 % (0.0-10.0); %Lymphocytes 36.5 % (21.0-51.0); %Monocytes 7.7 % (0.0-10.0); %Neutrophils 50.4 % (42.0-75.0); Hemoglobin 12.2 g/dL (12.0-16.0); Mean Corpuscular HGB CONC 30.9 g/dL (32.0-36.0); Mean Corpuscular Hemoglobin 24.7 pg (27.0-31.0); Mean Corpuscular Volume 79.8 fL (78.0-98.0); Mean Platelet Volume 8.6 fL (7.4-10.4); Platelet Count 223 thou/uL (130-400); RBC Distribution Width 15.4 % (11.5-14.5); Red Blood Cell (RBC) Count 4.96 mill/uL (4.20-5.40); White Blood Cell (WBC) Count 5.5 thou/uL (4.8-10.8)
[2018-07-25 07:07] LABS: INR-International Normal Ratio 1.3; PTT 31.2 SEC (22.9-36.1); Prothrombin Time 16.2 SEC (12.0-14.7)
[2018-07-25 07:21] LABS: Anion Gap 16 mmol/L (10-20); BUN (Urea Nitrogen) 12 mg/dL (9.8-20.1); Calc. Creatinine Clearance 68 mL/min (70-130); Carbon Dioxide 23 mmol/L (23-31); Chloride 107 mmol/L (98-107); Estimated GFR-MDRD 69; Glucose 106 mg/dL (80-115); Potassium 3.9 mmol/L (3.5-5.1); Sodium 142 mmol/L (136-145)
[2018-07-25] MEDS ORDERED: Fentanyl 100 MCG/2 ML VIAL ONE (07:26)
[2018-07-25] MEDS ORDERED: Midazolam HCl 2 mg/2 ml Vial ONE (07:26)
[2018-07-25] MEDS ORDERED: Propofol 500 MG/50 ML VIAL ONE ×2 (08:19→09:47)
[2018-07-25] MEDS ORDERED: Heparin 25,000 units/D5W 500 ML ONE (08:19)
[2018-07-25] MEDS ORDERED: Phenylephrine HCL 10 MG/ML VIAL ONE (10:52)
[2018-07-25] MEDS ORDERED: Protamine Sulfate 50 MG/5 ML VIAL ONE (11:02)
[2018-07-25] MEDS ORDERED: Lidocaine 1% PF 5 ML VIAL ONE (11:30)
[2018-07-25] MEDS ORDERED: Succinylcholine Chloride 20 MG/ML 10 ml SYRINGE FS ONE (11:30)
[2018-07-25] MEDS ORDERED: PHENYLEPHRINE-NS 100 MCG/ML 10 ML SYRINGE ONE (11:30)
[2018-07-25] MEDS ORDERED: PROPOFOL 200 MG/20 ML VIAL ONE (11:30)
[2018-07-25] MEDS ORDERED: Acetaminophen/Codeine 30-300mg Tablet PO PRN ×2 (12:45)
--- NOTE | 2018-07-25 13:49 | OP ---
DATE OF PROCEDURE: 07/25/2018 PROCEDURE PERFORMED: Electrophysiology study and radiofrequency ablation. REFERRING PHYSICIAN Dr. Alex Kam. REASON FOR PROCEDURE: Ms. Cavanaugh is a 68-year-old female with prior history of aortic valve replacement, postoperative atrial fibrillation requiring amiodarone , recurrent admission for atrial flutter while off amiodarone and for pulmonary venous isolation and possible left atrial ablation. DESCRIPTION OF PROCEDURE: The patient received propofol and general anesthesia by Anesthesia specialist. After adequate level of sedation achieved, the left and right femoral veins were accessed under ultrasound guidance x2. On the left side, an 11-Libyan sheet and 8-Libyan sheath were introduced. The 8-Libyan sheath was exchanged to a Preface long sheath. Through the left 11-Libyan sheath, an intracardiac echo probe was advanced into the right atrium and was used to monitor the transseptal procedure any pericardial effusion, which was not seen throughout the procedure. On the right side, two 8-Libyan short sheaths were introduced, which were used to advance a ThermoCool SFST catheter to obtain a right atrial 3D map. With the His bundle, CS positions and right atrial structure throughout the CTI areas were delineated. Following that, through a Preface sheath, a DuoDeca catheter was placed into CS as well as the right atrial position appropriately. Pacing and mapping recording were performed at each of these location. Following findings were noted. Baseline cycle length is 114 milliseconds. MA 149 milliseconds, QRS 89 milliseconds, QT 395 milliseconds, AH 97 milliseconds, HV 31 milliseconds. Sinus node recovery time was 1333, corrected 619 milliseconds. The AV Wenckebach cycle length was 360 milliseconds. AV node ERP was 600/260 milliseconds. No definite dual AV matty physiology was seen. The largest jump was noted about 40 milliseconds. Following that, the right-sided 8-Libyan short sheaths were exchanged to two SL1 transseptal sheaths. Using these, transseptal catheterization was performed under ultrasound guidance after administration of IV heparin bolus 10,000. IV heparin drip was also used, and ACT was regularly checked to maintain ACT over 350 milliseconds. Through the transseptal sheaths, the ThermoCool SFST catheter and the 20-pole Lasso catheter was introduced into the left atrium. Left atrial 3D map was obtained. The pulmonary venous isolation procedure was performed isolating all 4 pulmonary veins as well as the posterior wall was also isolated. An esophageal temperature probe was used to monitor esophageal temperatures. After isolation achieved, the total ablation count was 39 with ablation time 19 minutes and 56 seconds. Isuprel was introduced at this point, and the pulmonary veins were rechecked. Any reconnections were re-ablated. The repeated burst atrial pacing was performed. We were only able to induce a transient self-terminating short atrial fibrillation. At the end of the case, the cardiac silhouette and the intracardiac echo ruled out significant effusion. The catheter was withdrawn from the body. Protamine was administered to restore ACT normal level, and then the sheaths were pulled in the slab tripper. The patient tolerated the procedure well. No complications noted. CONCLUSION: 1. Successful pulmonary venous isolation procedure isolating all 4 pulmonary veins as well as isolating the posterior wall as well. 2. No inducible atrial tachyarrhythmias. 3. Abnormal sinus node recovery time. 4. Normal AV matty and His-Purkinje function are seen. 5. No evidence of clear dual AV matty physiology. No inducible SVT is documented at end of the case. PLAN: 1. Continue monitoring and short-term (3 month +) oral anticoagulation. Job ID: [id number] [facility]
[2018-07-25] MEDS ORDERED: Rivaroxaban 10 MG TAB PO SCH (17:00)
[2018-07-25 18:15] VITALS: BMI 24.7
[2018-07-25] MEDS ORDERED: Fenofibrate Nanocrystallized 145 MG TAB PO SCH (21:00)
[2018-07-25] MEDS ORDERED: Atorvastatin Calcium 40 MG TAB PO SCH (21:00)
[2018-07-25] MEDS: Carvedilol 6.25 MG TAB PO SCH (21:24)
[2018-07-26] MEDS: Carvedilol 6.25 MG TAB PO SCH (08:47)
[2018-07-26] MEDS ORDERED: Loratadine 10 MG TAB PO SCH (09:00)
[2018-07-26] MEDS ORDERED: Furosemide 20 MG TAB PO SCH (09:00)
[2018-07-26] MEDS ORDERED: Fenofibrate Nanocrystallized 145 MG TAB PO SCH (09:00)
[2018-07-26] MEDS ORDERED: Digoxin 0.125 MG TAB PO SCH (09:00)
[2018-07-26 12:32] VITALS: BP 117/57; TEMP 98.7
--- NOTE | 2018-07-26 14:23 | DIS ---
DATE OF ADMISSION: 07/25/2018 DATE OF DISCHARGE: 07/26/2018 DIAGNOSIS: Atrial fibrillation. PROCEDURES PERFORMED: Complete mapping and EP study with pulmonary venous isolation ablation including isolation of the posterior wall. TOTAL ABLATION TIME: 19 minutes 55 seconds. HISTORY OF PRESENT ILLNESS: Ms. Cavanaugh is a pleasant 68-year-old woman with a history of aortic valve stenosis who had postoperative atrial fibrillation. She was initially on amiodarone following a valve surgery, which was eventually discontinued at which point she developed a narrow complex SVT suggestive of rapid atrial flutter versus atrial tachycardia. She was taken to the EP lab for study and flutter and AFib ablation. SUBJECTIVE: Ms. Cavanaugh is feeling well today. She denies any heart racing, palpitations, chest pain, pressure, syncope, near syncope, stroke, stroke-like symptoms. She does endorse sore throat, some mild nausea and just overall feeling tired today. She is eating and drinking normally. She is ambulating in the riley without difficulty. She feels stable and ready to go home. OBJECTIVE: VITAL SIGNS: 97.8, T-max was 99.0, pulse 76, blood pressure 117/57, respirations 19, oxygen is 95% on room air. GENERAL: The patient is alert, oriented. Speech is clear. Affect is appropriate. NEUROLOGIC: Nonfocal. Her gait is stable. NECK: Supple without jugular venous distention. LUNGS: Clear to auscultation bilaterally. HEART: Rate is regularly regular with a crisp S1, S2. No signs of tamponade. ABDOMEN: Soft and nontender. Hepatojugular reflux is negative. EXTREMITIES: Warm and dry to touch without clubbing, cyanosis or edema. DISCHARGE MEDICATIONS: We will resume home medications of Xarelto daily, Claritin daily, Lasix 20 mg daily, fenofibrate at bedtime, Nexium daily, digoxin 0.125 mg daily, Coreg 6.25 mg p.o. b.i.d., Lipitor at bedtime. New prescription provided for sucralfate 1 g p.o. q.i.d. x2 weeks post ablation. DISCHARGE INSTRUCTIONS: No lifting more than 10 pounds for the next week. No soaking bath until groin sites are completely healed. She will follow up in 6 weeks or sooner if symptoms dictate. Take medications as prescribed. No stopping anticoagulation unless instructed to do by [facility]. Agree with above. Job ID: [id number] MTDD
== END 2018-07-26 15:20 | disposition home or self-care (01) ==
LOC: CCL 05:53 → 2SW 12:04
PROVIDERS: ADMIT Internal Medicine Cardiovascular Disease; ATTEND Internal Medicine Cardiovascular Disease
PROC: 02583ZZ Destruction of Conduction Mechanism, Percutaneous Approach (ICD-10-PCS; principal; 2018-07-25)
PROC: 02K83ZZ Map Conduction Mechanism, Percutaneous Approach (ICD-10-PCS; 2018-07-25)
PROC: 4A023FZ Measurement of Cardiac Rhythm, Percutaneous Approach (ICD-10-PCS; 2018-07-25)
PROC: 4A0234Z Measurement of Cardiac Electrical Activity, Percutaneous Approach (ICD-10-PCS; 2018-07-25)
DX: I48.1 Persistent atrial fibrillation (principal); I48.92 Unspecified atrial flutter; I47.1 Supraventricular tachycardia; I10 Essential (primary) hypertension; I35.0 Nonrheumatic aortic (valve) stenosis; E78.5 Hyperlipidemia, unspecified; K21.9 Gastro-esophageal reflux disease without esophagitis; Z95.2 Presence of prosthetic heart valve; Z79.82 Long term (current) use of aspirin; Z79.01 Long term (current) use of anticoagulants; Z79.899 Other long term (current) drug therapy
CPT/HCPCS: 76942; 80048; 85025; 85347 ×2; 85610; 85730; 93005 ×3; 93613; 93623; 93655; 93656; 93657; 93662; C1730; C1731; C1732 ×2; C1759; C1769; G0378; 36415; 93010; J1644; J2001; J2250; J2370; J2704; J2720; J3010

== ENCOUNTER 2018-11-16 09:43 | Outpatient (CLI) | payer MEDICARE ==
--- NOTE | 2018-11-16 10:50 | CT ---
EXAM: CT angiogram neck with IV contrast and 3-D reconstructions PROVIDED CLINICAL HISTORY: Dizzy spells. Transient episodes of left blindness. Carotid stenosis. COMPARISON: None FINDINGS: Minimal vascular calcifications are seen in the aortic arch and at the origin of the great vessels. T here is a normal arrangement of the great vessels at the aortic arch which are patent. The right subclavian and visualized left subclavian arteries are patent. The innominate artery as well as bilat eral common carotid arteries are patent. There is minimal atherosclerotic plaque seen involving the proximal left internal carotid artery. How ever, there is no significant stenosis involving the internal carotid arteries bilaterally with much less than 50% stenosis involving the internal carotid arteries bilaterally according to NASCET c riteria. The right internal carotid artery is tortuous, and a portion of the right internal carotid artery is located posterior to the level of the right piriform sinus. The left vertebral artery is dominant and patent. Right vertebral artery is smaller in caliber. The d istal right vertebral artery is not well visualized and likely terminates in PICA. The visualized basilar artery is patent. There is partial visualization of median sternotomy wires. Minimal groundglass densities are seen in the visualized upper lobes bilaterally with linear densitie s in the right upper lobe likely attributable to atelectasis. Prevertebral soft tissues are within normal limits. Degenerative changes are seen in the spine. Mucous retention cyst is noted in the right maxillary antrum. IMPRESSION: 1. No significant stenosis is seen within the bilateral internal carotid arteries. The right internal carotid artery is tortuous and deviates medially. 2. Patent left vertebral artery which is dominant. The right vertebral artery is small in caliber and likely terminates in PICA which is a normal variant.
== END 2018-11-16 09:44 | disposition home or self-care (01) ==
LOC: BICCT 09:43
PROVIDERS: ATTEND Internal Medicine Cardiovascular Disease
DX: I65.23 Occlusion and stenosis of bilateral carotid arteries (principal); I77.1 Stricture of artery
CPT/HCPCS: 70498

== ENCOUNTER 2019-05-15 15:36 | Outpatient (CLI) | payer MEDICARE ==
--- NOTE | 2019-05-15 17:01 | MMO ---
Bilateral MAMMO Bilat Screen [facility]. CLINICAL HISTORY: Patient is 69 years old and is seen for screening. The patient has no family history of breast cancer. The patient has no personal history of cancer. VIEWS: The views performed were: bilateral craniocaudal with tomosynthesis and bilateral mediolateral oblique with tomosynthesis. This study has been interpreted with the assistance of computer-aided detection. MAMMOGRAM FINDINGS: There are scattered fibroglandular densities. There is an oval mass measuring 6 millimeters seen in the upper-outer region of the right breast. In the left breast, there are no suspicious masses, calcifications or areas of architectural distortion. IMPRESSION: MASS IN THE RIGHT BREAST REQUIRES ADDITIONAL EVALUATION. ADDITIONAL IMAGING. THE RESULTS OF THIS EXAM WERE SENT TO THE PATIENT. ACR BI-RADS Category 0 - Incomplete: Need additional imaging evaluation. [facility] will notify the patient of the need for additional imaging services. MAMMOGRAPHY NOTE: 1. A negative mammogram report should not delay a biopsy if a dominant of clinically suspicious mass is present. 2. Approximately 10% to 15% of breast cancers are not detected by mammography. 3. Adenosis and dense breasts may obscure an underlying neoplasm. Reported by: CECE MURPHY MD Electonically Signed: [id number]
== END 2019-05-15 15:37 | disposition home or self-care (01) ==
LOC: BICMAMMO 15:36
PROVIDERS: ATTEND Family Medicine
DX: Z12.31 Encounter for screening mammogram for malignant neoplasm of breast (principal); N63.10 Unspecified lump in the right breast, unspecified quadrant
CPT/HCPCS: 77063; 77067

== ENCOUNTER 2019-05-19 09:52 | Outpatient (CLI) | payer MEDICARE ==
--- NOTE | 2019-05-19 10:32 | MMO ---
Right Breast MAMMO Unilat Diag [facility] RT[facility]. CLINICAL HISTORY: Patient is 69 years old and is seen for diagnostic exam. The patient has no family history of breast cancer. The patient has no personal history of cancer. VIEWS: The views performed were: right craniocaudal spot compression with tomosynthesis; right mediolateral oblique spot compression with tomosynthesis; and right mediolateral with tomosynthesis. FILMS COMPARED: The present examination has been compared to prior imaging studies performed at [facility] on 05/15/2019 and 05/19/2019. This study has been interpreted with the assistance of computer-aided detection. MAMMOGRAM FINDINGS: There are scattered fibroglandular densities. There are multiple benign appearing densities of varying size seen in the right breast. There are no suspicious masses, suspicious calcifications, or new areas of architectural distortion. IMPRESSION: THERE IS NO MAMMOGRAPHIC EVIDENCE OF MALIGNANCY. A ROUTINE FOLLOW-UP MAMMOGRAM IN 1 YEAR IS RECOMMENDED. THE RESULTS OF THIS EXAM WERE SENT TO THE PATIENT. ACR BI-RADS Category 2 - Benign finding MAMMOGRAPHY NOTE: 1. A negative mammogram report should not delay a biopsy if a dominant of clinically suspicious mass is present. 2. Approximately 10% to 15% of breast cancers are not detected by mammography. 3. Adenosis and dense breasts may obscure an underlying neoplasm. Reported by: HAMIDA BARTLETT MD Electonically Signed: [id number]
--- NOTE | 2019-05-19 11:25 | ULT ---
LIMITED SONOGRAM RIGHT BREAST: HISTORY: Breast nodule. Abnormal mammogram. FINDINGS: Sonographic evaluation of the 10 o'clock position right breast in the region of mammographic concern shows a well circumscribed, oval, hypoechoic lesion with an eccentric hyperechoic hilum. It is 0.4 cm in greatest diameter. An adjacent similar lymph node is also present, also 0.4 cm in greatest diamet er. No suspicious shadowing. IMPRESSION: Benign appearing lymph nodes at the 10 o'clock position right breast. BI-RADS category 2 - benign findings. Please see separate report regarding diagnostic mammography per formed on the same date. POS: KATIE
== END 2019-05-19 09:53 | disposition home or self-care (01) ==
LOC: BICMAMMO 09:52
PROVIDERS: ATTEND Family Medicine
DX: N63.10 Unspecified lump in the right breast, unspecified quadrant (principal); I89.8 Other specified noninfective disorders of lymphatic vessels and lymph nodes
CPT/HCPCS: 76642; 77065; G0279

== ENCOUNTER 2019-09-24 09:29 | Emergency (ER) | payer MEDICARE ==
[2019-09-24] MEDS ORDERED: Ketorolac Tromethamine 30 MG/ML VIAL ONE (10:13)
--- NOTE | 2019-09-24 10:42 | RAD ---
XR Hip Lt 2-3 View INDICATION: Low back and left-sided hip pain COMPARISON: None FINDINGS: Bones: No acute osseous abnormality. Bone mineralization appears within normal limits. Hip joint: There is moderate left hip osteoarthrosis. SI joints and symphysis pubis: There is mild left SI joint osteoarthrosis. Intrapelvic contents: Visualized bowel gas pattern is within normal limits. Surrounding soft tissues: Small phlebolith is seen within the lower left hip soft tissues. IMPRESSION: 1. No acute osseous abnormality.
== END 2019-09-24 12:32 | disposition home or self-care (01) ==
LOC: ERS 09:29
DX: M54.5 Low back pain (principal); G89.29 Other chronic pain; M25.552 Pain in left hip; E78.5 Hyperlipidemia, unspecified; K21.9 Gastro-esophageal reflux disease without esophagitis; Z79.82 Long term (current) use of aspirin; Z79.899 Other long term (current) drug therapy
CPT/HCPCS: 73502; J1885; 96372

== ENCOUNTER 2019-10-22 06:18 | Emergency (ER) | payer MEDICARE ==
[2019-10-22] MEDS ORDERED: cloNIDine 0.1 MG TAB ONE (06:45)
== END 2019-10-22 07:15 | disposition home or self-care (01) ==
LOC: ERS 06:18
DX: I10 Essential (primary) hypertension (principal); K21.9 Gastro-esophageal reflux disease without esophagitis; E78.5 Hyperlipidemia, unspecified; Z79.891 Long term (current) use of opiate analgesic; Z79.82 Long term (current) use of aspirin; Z79.899 Other long term (current) drug therapy
CPT/HCPCS: 99283

== ENCOUNTER 2020-04-17 07:23 | Outpatient (CLI) | payer MEDICARE | END 2020-04-17 07:24 | disposition home or self-care (01) | LOC: DTY/OP 07:23 | PROVIDERS: ATTEND Family Medicine | DX: E11.65 Type 2 diabetes mellitus with hyperglycemia (principal) | CPT/HCPCS: 97802 ==

== ENCOUNTER 2020-09-11 15:27 | Outpatient (CLI) | payer MEDICARE | END 2020-09-11 15:28 | disposition home or self-care (01) | LOC: BICULT 15:27 | PROVIDERS: ATTEND Family Medicine | DX: R60.0 Localized edema (principal) | CPT/HCPCS: 93970 ==

== ENCOUNTER 2021-01-27 10:41 | Outpatient (CLI) | payer MEDICARE | END 2021-01-27 10:42 | disposition home or self-care (01) | LOC: BICMAMMO 10:41 | PROVIDERS: ATTEND Family Medicine | DX: Z12.31 Encounter for screening mammogram for malignant neoplasm of breast (principal) | CPT/HCPCS: 77063; 77067 ==

== ENCOUNTER 2023-01-14 10:02 | Outpatient (CLI) | payer MEDICARE | END 2023-01-14 10:03 | disposition home or self-care (01) | LOC: BICMAMMO 10:02 | PROVIDERS: ATTEND Family Medicine | DX: Z12.31 Encounter for screening mammogram for malignant neoplasm of breast (principal); Z13.820 Encounter for screening for osteoporosis; M85.852 Other specified disorders of bone density and structure, left thigh; Z78.0 Asymptomatic menopausal state | CPT/HCPCS: 77063; 77067; 77080 ==

== ENCOUNTER 2024-05-09 10:06 | Outpatient (CLI) | payer MEDICARE | END 2024-05-09 10:07 | disposition home or self-care (01) | LOC: BICMAMMO 10:06 | PROVIDERS: ATTEND Family Medicine | DX: Z12.31 Encounter for screening mammogram for malignant neoplasm of breast (principal); Z78.0 Asymptomatic menopausal state | CPT/HCPCS: 77063; 77067; 77080 ==